=== PATIENT | female | born 1990 | race Caucasian/White ===

== ENCOUNTER → 2016-09-02 | Outpatient (CLI) | payer MEDICARE, MEDICAID ==
[2016-09-02 12:18] LABS: ABSOLUTE RETICS # 0.0456 T/MM3 (0.0300-0.0900); BASOPHILS % (AUTO) 0.3 % (0-2); EOSINOPHILS # (AUTO) 0.1 T/MM3 (0-0.5); EOSINOPHILS % (AUTO) 0.9 % (0-4); HCT - HEMATOCRIT 44.6 % (36-46); HGB - HEMOGLOBIN 14.6 GM/DL (12-16); IMMATURE GRANULOCYTE # (AUTO) 0.02 T/MM3 (0.00-0.03); IMMATURE GRANULOCYTE % (AUTO) 0.2 % (0.0-0.5); LYMPHOCYTES # (AUTO) 3.1 T/MM3 (1-4.8); LYMPHOCYTES % (AUTO) 30.9 % (23-45); MEAN CORPUSCULAR HGB 31.1 UUG (26-34); MEAN CORPUSCULAR HGB CONC(MCHC 32.7 GM/DL (31-37); MEAN CORPUSCULAR VOLUME 94.9 UM3 (80-100); MEAN PLATELET VOLUME 9.2 UM3 (9.4-12.4); MONOCYTES # (AUTO) 0.6 T/MM3 (0-0.8); MONOCYTES % (AUTO) 6.3 % (0-9.0); NEUTROPHILS #(AUTO)-ABSOLUTE 6.2 T/MM3 (1.8-7.7); NEUTROPHILS % (AUTO) 61.4 % (33-66); RETICULOCYTE HGB 32.2 PG (30.8-36.6)
[2016-09-02 12:28] LABS: ALBUMIN/GLOBULIN RATIO 1.2 RATIO (1.1-2.2); ALKALINE PHOSPHATASE 120 U/L (38-126); ALT (SGPT) 31 U/L (9-52); ANION GAP 14 MEQ/L (5-15); AST (SGOT) 24 U/L (14-36); BUN/CREATININE RATIO 15 RATIO (6-26); CALCIUM 9.3 MG/DL (8.4-10.2); CHLORIDE 106 MEQ/L (98-107); CO2 - CARBON DIOXIDE 30 MEQ/L (22-30); CREATININE 0.6 MG/DL (0.7-1.2); GLOMERULAR FILTRATION RATE 120; GLUCOSE 97 MG/DL (65-110); LDH 544 U/L (313-618); POTASSIUM 3.6 MEQ/L (3.6-5); SODIUM 150 MEQ/L (134-144); TOTAL PROTEIN 7.3 G/DL (6.3-8.2)
[2016-09-03 04:23] LABS: FERRITIN 9.04 NG/ML (6-137)
== END ==
LOC: LAB 12:05
PROVIDERS: ATTEND Nurse Practitioner
DX: D50.0 Iron deficiency anemia secondary to blood loss (chronic) (principal); K50.911 Crohn's disease, unspecified, with rectal bleeding
CPT/HCPCS: 36415; 80053; 82728; 83540; 83550; 83615; 85025; 85045